=== PATIENT | male | born 1985 | race Caucasian/White ===

== ENCOUNTER 2017-02-09 11:04 | Emergency (ER) | payer SELFPAY ==
[2017-02-09 11:12] VITALS: TEMP 98.1; BMI 29.1
--- NOTE | 2017-02-09 11:24 | PDOC ---
History of Present Illness <Zaki Woods - Last Filed: 02/09/17 14:30> - General History Source: Patient Exam Limitations: No Limitations - History of Present Illness Initial Comments: 02/09/17 12:02 The patient is a 31 year old male, with no significant past medical history, who presents to the emergency department with bilateral hand tingling and headache since he woke up this morning. He describes the headache as a pounding sensation, localized on the right side of his head, ranging from moderate to severe, without radiation. He states that light and bending over exacerbates his pain. He describes his tingling as more pronounced on his right hand than his left. On presentation the patient is able to grasp and exert force with his upper an lower extremities without difficulty. He reports that he works at an [employer] shop and works with his hands constantly. The patient denies chest pain, shortness of breath and dizziness. Denies fever, chills, nausea, vomit, diarrhea and constipation. Allergies: None Past surgical history: None reported Social history: No alcohol, tobacco or drug use reported <Severiano Anderson - Last Filed: 02/09/17 14:47> - General Chief Complaint: Headache Stated Complaint: RT HAND NUMBNESS, HEADACHE Time Seen by Provider: 02/09/17 11:24 Past History - Past Medical History Other medical history: none - Psycho/Social/Smoking Cessation Hx Anxiety: No Suicidal Ideation: No Smoking History: Never smoked Have you smoked in the past 12 months: No Number of Cigarettes Smoked Daily: 1 Information on smoking cessation initiated: No 'Breaking Loose' booklet given: 12/08/14 Hx Alcohol Use: No Drug/Substance Use Hx: No Substance Use Type: Alcohol <Zaki Woods - Last Filed: 02/09/17 14:30> <Severiano Anderson - Last Filed: 02/09/17 14:47> - Past Medical History Allergies/Adverse Reactions: Allergies Allergy/AdvReac Type Severity Reaction Status Date / Time No Known Allergies Allergy Verified 02/09/17 11:31 Home Medications: Ambulatory Orders NK [No Known Home Medication] 02/09/17 Review of Systems - Review of Systems Able to Perform ROS?: Yes Comments:: 02/09/17 12:02 CONSTITUTIONAL: No fever, no chills, no fatigue EYES: No visual changes ENT: No ear pain, no sore throat CARDIOVASCULAR: No chest pain, no palpitations RESPIRATORY: No cough, no SOB GI: No abdominal pain, no nausea, no vomiting, no constipation, no diarrhea GENITOURINARY: No dysuria, no frequency, no hematuria EXTREMITIES: +Bilateral hand tingling, more pronounced on the right MUSKULOSKELETAL: No backpain, no joint pain, no myalgias SKIN: No rash NEURO: +Right sided headache. <Severiano Anderson - Last Filed: 02/09/17 14:47> *Physical Exam - Vital Signs Last Vital Signs Temp Pulse Resp BP Pulse Ox 98.1 F 68 18 144/85 100 02/09/17 11:09 02/09/17 11:09 02/09/17 11:09 02/09/17 11:09 02/09/17 11:09 <Zaki Woods - Last Filed: 02/09/17 14:30> - Vital Signs Last Vital Signs Temp Pulse Resp BP Pulse Ox 98.1 F 68 18 144/85 100 02/09/17 11:09 02/09/17 11:09 02/09/17 11:09 02/09/17 11:09 02/09/17 11:09 - Physical Exam Comments: 02/09/17 12:02 CONSTITUTIONAL: Well-appearing; well-nourished; in no apparent distress HEAD: Normocephalic; atraumatic EYES: PERRL; EOM intact ENMT: External appears normal; normal oropharynx NECK: Supple; non-tender; no cervical lymphadenopathy CARD: Normal S1, S2; no murmurs, rubs, or gallops RESP: Normal chest excursion with respiration; breath sounds clear and equal bilaterally; no wheezes, rhonchi, or rales ABD: Soft, non-distended; non-tender; no palpable organomegaly, no palpable hernias EXT: Normal ROM in all four extremities; non-tender to palpation; distal pulses intact SKIN: Warm, dry, no rash NEURO: Alert, awake, appropriate. Cranial nerves 2-12 intact. No deficits to light touch and temperature in face, upper extremities and lower extremities. No motor deficits in the in face, upper extremities and lower extremities. Normoreflexic in the upper and lower extremities. Normal speech. Toes are down-going bilaterally. Gait is normal without ataxia. <ClaireaideeSeveriano Taylor - Last Filed: 02/09/17 14:47> ED Treatment Course - LABORATORY CBC & Chemistry Diagram: 02/09/17 12:04 02/09/17 12:04 <PeggyHerbieZaki - Last Filed: 02/09/17 14:30> - LABORATORY CBC & Chemistry Diagram: 02/09/17 12:04 02/09/17 12:04 - RADIOLOGY Radiograph Interpretation: 02/09/17 14:[address] Reviewed by: Dr. Kee Medel Impression: No CT evidence of acute intracranial pathology. <ClaireaideeSeveriano Claudia - Last Filed: 02/09/17 14:47> Progress Note - Progress Note Progress Note: Upon reassessment of the patient, he notes that he is feeling better. Noting that the headache has almost completely resolved, his bilateral hand tingling has resolved and light no longer bothers him. <Severiano Andersone - Last Filed: 02/09/17 14:47> Medical Decision Making - Medical Decision Making 02/09/17 14:28 Patient is a 31-year-old male with family history of migraines who presents with throbbing, hemicranial and right retro-orbital headache with associated photophobia and nausea. In the ER, patient is awake alert, without evidence of meningismus and without focal neurological deficits. CT of head obtained within 6 hours from the onset of headache reveals no evidence of subarachnoid hemorrhage or any other acute intracranial pathology. Patient had received Reglan and Benadryl with complete resolution of his headache. I do not suspect aneurysmal subarachnoid hemorrhage at this time. There is no indication for LP at this moment. Patient will be discharge with neurology follow-up for evaluation of headache. <Zaki Woods - Last Filed: 02/09/17 14:30> *DC/Admit/Observation/Transfer - Attestations Scribe Attestion: 02/09/17 14:27 The documentation was prepared by the scribe under my direct supervision. I have reviewed the documentation which correctly represents the findings, medical decision-making and critical action taken by me. <Zaki Woods - Last Filed: 02/09/17 14:30> - Attestations Scribe Attestion: 02/09/17 12:00 Documentation prepared by Severiano Anderson, acting as biomedical manager for Zaki Woods MD <Severiano Anderson - Last Filed: 02/09/17 14:47> Diagnosis at time of Disposition: Headache Qualifiers: Headache type: unspecified Headache chronicity pattern: acute headache Intractability: not intractable Qualified Code(s): R51 - Headache - Discharge Dispostion Disposition: HOME Condition at time of disposition: Stable - Referrals Referrals: Yue Crowley MD [Staff Physician] - - Patient Instructions Printed Discharge Instructions: DI for Headache
[2017-02-09] MEDS ORDERED: METOCLOPRAMIDE HCL INJECTION 10 MG/2 ML VIAL IVPB ONE (11:48)
[2017-02-09] MEDS ORDERED: METOCLOPRAMIDE HCL INJECTION 10 MG/2 ML VIAL ONE (11:57)
[2017-02-09] MEDS ORDERED: SODIUM CHLORIDE 500 ML IV STA (12:04)
[2017-02-09 12:15] LABS: BASOPHIL 0.4 % (0-2.0); EOSINOPHIL 0.6 % (0-4.5); MCH 28.9 pg (25.7-33.7); MCHC 33.6 g/dl (32.0-35.9); MEAN PLT VOLUME 7.6 fl (7.5-11.1); NEUTROPHILS 76.3 % (42.8-82.8); PLATELET COUNT 209 K/MM3 (134-434); RDW 12.8 % (11.9-15.9); WHITE BLOOD COUNT 7.7 K/mm3 (4.0-10.0)
[2017-02-09 12:44] LABS: ALBUMIN 3.9 g/dl (3.4-5.0); ANION GAP 8 (8-16); CALCIUM 8.6 mg/dL (8.5-10.1); CO2 26 mmol/L (21-32); CREATININE 0.9 mg/dL (0.7-1.3); GLUCOSE,RANDOM 96 mg/dL (74-106); SGOT/AST 20 U/L (15-37); SGPT/ALT 48 U/L (12-78)
[2017-02-09 12:46] LABS: ALK PHOS 103 U/L (45-117); BILIRUBIN,TOTAL 0.4 mg/dL (0.2-1.0); TOT PROT 7.6 g/dl (6.4-8.2)
[2017-02-09 14:45] VITALS: BP 138/72; PULSE 72
== END 2017-02-09 14:46 | disposition home or self-care (01) ==
LOC: JER 11:04
PROC: 3E033GC Introduction of Other Therapeutic Substance into Peripheral Vein, Percutaneous Approach (ICD-10-PCS; principal; 2017-02-09)
DX: R51 Headache (principal)
CPT/HCPCS: 36415; 70450-TC; 80053; 85025; 99283-25